=== PATIENT | female | born 1985 | race Caucasian/White ===

== ENCOUNTER 2024-07-15 08:19 | Inpatient (IN) ==
[2024-07-15] MEDS ORDERED: Lidocaine 1% VIAL 10 MG/ML 30 ML VIAL INJ PRN (09:47)
[2024-07-15] MEDS ORDERED: Nalbuphine 10 MG/ML 1 ML VIAL IV PRN (09:47)
[2024-07-15] MEDS: miSOPROStol 100 mcg TAB PO ONE (10:19)
[2024-07-15] MEDS: Buffered Lidocaine 1% SYRIN 1 ml INTRADERM ONE (12:04)
[2024-07-15 13:34] LABS: Urine Benzodiazepine Screen None Detected (None Detect); Urine Cannabinoids Screen None Detected (None Detect); Urine Opiates Screen None Detected (None Detect)
[2024-07-15 16:11] LABS: ABS Basophils 0.1 10^3/uL (0.0-0.1); ABS Eosinophils 0.1 10^3/uL (0.0-0.5); ABS Lymphocytes 2.2 10^3/uL (1.0-4.8); ABS Monocytes 0.9 10^3/uL (0.0-0.9); ABS Neutrophils 8.8 10^3/uL (1.5-7.6); ABS Nucleated RBC 0.01 10^3/ul; Eosinophil % 1.1 %; Hematocrit 38.6 % (35-45); Hemoglobin 13.3 g/dL (11.5-14.3); Mean Corpuscular Hemoglobin 30.2 pg (27-33); Mean Corpuscular Hgb Conc 34.4 g/dL (31-36); Mean Corpuscular Volume 87.9 fL (80-97); Mean Platelet Volume 9.6 fL (7.5-11.2); Nucleated Red Blood Cells % 0.1 %/100WBC (0.0-0.8); Platelet Count 180 10^3/uL (150-450); White Blood Count 12.1 10^3/uL (3.8-11.8)
[2024-07-15] MEDS: Lactated Ringers 1000 ml BAG 1,000 ML IV SCH (17:55)
[2024-07-15] MEDS: Oxytocin in LR 20,000 MILLI.UNIT/1,000 ML BAG IV SCH (18:01)
[2024-07-15] MEDS: Lactated Ringers 1000 ml BAG 1,000 ML IV ONE (21:27)
[2024-07-15] MEDS: OBEPIDURAL (200 ML) 200 ML EPIDURAL ONE (23:41)
[2024-07-15] MEDS: Lidocaine 2% w/ EPI 1:200,000 MPF 20 ML SDV VIAL ONE (23:43)
[2024-07-15] MEDS ORDERED: Sodium Citrate/Citric Acid LIQ 15 ML UDC PO PRN (23:45)
[2024-07-15] MEDS ORDERED: Phenylephrine 40 mcg/mL 10mL (400mcg) SYRINGE IV PUSH PRN (23:45)
[2024-07-16] MEDS: Lactated Ringers 1000 ml BAG 1,000 ML IV SCH (00:28)
[2024-07-16 00:46] LABS: Urine Appearance Clear; Urine Bilirubin Negative (Negative); Urine Blood Negative (Negative); Urine Color Colorless; Urine Glucose Negative (Negative); Urine Ketones Negative (Negative); Urine Nitrite Negative (Negative); Urine Protein Negative (Negative); Urine Specific Gravity 1.007 (1.002-1.030); Urine Urobilinogen Negative (Negative); Urine pH 6.5 (5.0-8.0)
[2024-07-16] MEDS: Phenylephrine 40 mcg/mL 10mL (400mcg) SYRINGE IV PUSH PRN (01:02)
[2024-07-16] MEDS: Ondansetron 4 mg VIAL 2 MG/ML 2 ml VIAL IV PRN (01:06)
[2024-07-16] MEDS: Lactated Ringers 1000 ml BAG 1,000 ML IV ONE (01:18)
[2024-07-16] MEDS: OBEPIDURAL (200 ML) 200 ML EPIDURAL SCH (01:18)
[2024-07-16] MEDS: Phenylephrine 40 mcg/mL 10mL (400mcg) SYRINGE ONE (06:40)
[2024-07-16] MEDS: Methylergonovine 0.2 mg AMPULE 1 ml AMP ONE (13:57)
[2024-07-16] MEDS ORDERED: Dibucaine 1% OINT 28.35 GM TUBE PR PRN (14:18)
[2024-07-16] MEDS ORDERED: Witch Hazel PAD JAR TOPICAL PRN (14:18)
[2024-07-16] MEDS ORDERED: Lactated Ringers 1000 ml BAG 1,000 ML IV SCH (15:00)
[2024-07-16] MEDS: Oxytocin in LR 20,000 MILLI.UNIT/1,000 ML BAG IV SCH (15:28)
[2024-07-16 16:20] LABS: Hematocrit 33.5 % (35-45); Hemoglobin 11.3 g/dL (11.5-14.3); Mean Corpuscular Hemoglobin 29.6 pg (27-33); Mean Corpuscular Hgb Conc 33.8 g/dL (31-36); Mean Corpuscular Volume 87.5 fL (80-97); Mean Platelet Volume 8.7 fL (7.5-11.2); Platelet Count 153 10^3/uL (150-450); Red Blood Count 3.83 10^6/uL (3.63-4.92); Red Cell Distribution Width 14.3 % (12-17); White Blood Count 20.5 10^3/uL (3.8-11.8)
[2024-07-16] MEDS: Calcium Carb (TUMS) 500 mg CHEW TAB PO PRN (16:42)
[2024-07-16] MEDS: Lidocaine 1.5% EPI 1:200,000 30 ML SDV ONE (18:16)
[2024-07-16] MEDS: Lidocaine 2% w/ EPI 1:200,000 MPF 20 ML SDV VIAL ONE (18:17)
[2024-07-16] MEDS: Methylergonovine 0.2 mg AMPULE 1 ml AMP IM ONE (18:18)
[2024-07-16] MEDS: fentaNYL 100 mcg/2 ml 50 MCG/ML VIAL ONE (18:21)
[2024-07-16] MEDS: PROZAC 10 MG PO SCH (18:22)
[2024-07-16] MEDS: Bupivacaine 0.25% SDV PF 10 ML VIAL INJ ONE (18:22)
[2024-07-16 21:17] LABS: ABS Basophils 0.1 10^3/uL (0.0-0.1); ABS Lymphocytes 1.3 10^3/uL (1.0-4.8); ABS Monocytes 1.7 10^3/uL (0.0-0.9); ABS Neutrophils 17.4 10^3/uL (1.5-7.6); Eosinophil % 0.1 %; Lymphocyte % 6.5 %
[2024-07-17 09:30] LABS: ABS Basophils 0.1 10^3/uL (0.0-0.1); ABS Eosinophils 0.1 10^3/uL (0.0-0.5); ABS Lymphocytes 1.7 10^3/uL (1.0-4.8); ABS Monocytes 0.8 10^3/uL (0.0-0.9); ABS Neutrophils 9.7 10^3/uL (1.5-7.6); Eosinophil % 0.5 %; Hematocrit 26.8 % (35-45); Hemoglobin 9.2 g/dL (11.5-14.3); Lymphocyte % 14.1 %; Mean Corpuscular Hemoglobin 29.9 pg (27-33); Mean Corpuscular Hgb Conc 34.2 g/dL (31-36); Mean Corpuscular Volume 87.3 fL (80-97); Mean Platelet Volume 8.9 fL (7.5-11.2); Platelet Count 140 10^3/uL (150-450); Red Blood Count 3.06 10^6/uL (3.63-4.92); Red Cell Distribution Width 14.7 % (12-17); White Blood Count 12.4 10^3/uL (3.8-11.8)
[2024-07-17] MEDS: Iron Sucrose 200 MG in NS 0.9% 100 ml BAG 100 ML IVPB ONE (13:41)
[2024-07-18 08:45] LABS: Hematocrit 25.2 % (35-45); Hemoglobin 8.7 g/dL (11.5-14.3)
[2024-07-18 09:13] VITALS: BP 123/73
[2024-07-18] MEDS: Iron Sucrose 200 MG in NS 0.9% 100 ml BAG 100 ML IVPB ONE (11:57)
== END 2024-07-18 14:55 | disposition home or self-care (01) | DRG 560 ==
LOC: MCHOBOUT 08:19 → MCHOB 08:33